=== PATIENT | female | born 1945 | race Caucasian/White ===

== ENCOUNTER 2018-02-28 07:07 | Day surgery (SDC) | payer MEDICARE, OTHER ==
[2018-02-25 13:00] VITALS: BP 151/79
[2018-02-25 13:15] LABS: BASOPHILS # (AUTO) 0.08 x10^3/uL (0-0.1); BASOPHILS % (AUTO) 1 % (0-1); EOSINOPHILS # (AUTO) 0.23 x10^3/uL (0-0.4); EOSINOPHILS % (AUTO) 3 % (1-7); LYMPHOCYTES # (AUTO) 2.93 x10^3/uL (1-3.4); LYMPHOCYTES % (AUTO) 32 % (22-44); MD NO; MEAN CORPUSCULAR HEMOGLOBIN 30.6 pg (27.0-34.8); MEAN CORPUSCULAR HGB CONC 34.1 g/dL (32.4-35.8); MEAN CORPUSCULAR VOLUME 89.7 fL (80-100); MEAN PLATELET VOLUME 8.1 fL (7.4-10.4); MONOCYTES % (AUTO) 9 % (2-9); NEUTROPHILS # (AUTO) 5.21 x10^3/uL (1.8-6.8); NEUTROPHILS % (AUTO) 56 % (42-75); PLATELET COUNT 310 x10^3/uL (130-400); RED BLOOD COUNT 4.48 x10^6/uL (3.82-5.3); RED CELL DISTRIBUTION WIDTH 13.6 % (9.6-15.2)
[2018-02-25 13:25] LABS: INTERNATIONAL NORMALIZED RATIO 1.07 (0.93-1.1); PROTHROMBIN TIME 11.3 Seconds (9.6-11.5)
[2018-02-25 13:27] LABS: ALBUMIN 3.3 g/dL (3.4-5.0); ANION GAP 9 mmol/L (5-15); CALCIUM 9.1 mg/dL (8.5-10.1); CHLORIDE 112 mmol/L (98-107)
[2018-02-25 13:30] LABS: ALANINE AMINOTRANSFERASE 32 U/L (12-78); ALKALINE PHOSPHATASE 63 U/L (45-117); BILIRUBIN,TOTAL 0.9 mg/dL (0.2-1.0); CREATININE 0.76 mg/dL (0.55-1.02)
[~2018-02-28] VITALS: Ht 161.3 cm; Wt 90.0 kg
[~2018-02-28 07:07] MED LIST: ACET-1600 PO; ASPI650T PO; ATOR10TA PO; CHOL2000 PO; ESCI10TA10 PO; FISH1CAP PO; GLYB2.5T2 PO; LOSA100T7 PO; METH750T2 PO; MULT1TAB60 PO; PRED5DRO20 EACHEYE; SITA50TA PO; TRAM50TA2 PO
[2018-02-28] MEDS ORDERED: LACTATED RINGERS 1,000 ML IV SCH (07:42)
[2018-02-28 07:47] VITALS: BP 151/79
[2018-02-28] MEDS ORDERED: LIDOCAINE-MPF 1%, 2ML INFIL ONE (08:00)
[2018-02-28] MEDS ORDERED: MIDAZOLAM 1 MG/ML, 2ML ONE (08:53)
[2018-02-28] MEDS ORDERED: FENTANYL PF 250 MCG/5ML ONE (08:53)
[2018-02-28] MEDS ORDERED: DEXAMETHASONE 4 MG/ML, 1ML ONE ×2 (08:54)
[2018-02-28] MEDS ORDERED: ONDANSETRON 2MG/ML, 2ML ONE (08:54)
[2018-02-28] MEDS ORDERED: PROPOFOL 10 MG/ML, 20ML ONE (08:54)
[2018-02-28] MEDS ORDERED: CEFAZOLIN 1,000 MG ONE ×2 (08:54)
[2018-02-28] MEDS ORDERED: OXYTOCIN 10 UNITS/ML, 1ML ONE (08:55)
[2018-02-28] MEDS ORDERED: KETOROLAC 30 MG/1 ML ONE (09:25)
[2018-02-28] MEDS ORDERED: FENTANYL PF 100 MCG/2ML IV PRN (09:30)
[2018-02-28] MEDS ORDERED: ONDANSETRON 2MG/ML, 2ML IV PRN (09:30)
[2018-02-28] MEDS ORDERED: PROMETHAZINE 25 MG/ML, 1ML IM PRN ×2 (09:30)
[2018-02-28] MEDS ORDERED: LABETALOL 5MG/ML, 20ML IV PRN (09:30)
[2018-02-28] MEDS ORDERED: ONDANSETRON ODT 8 MG PO PRN (09:30)
[2018-02-28] MEDS ORDERED: PROMETHAZINE 25 MG SUPP PR PRN (09:30)
[2018-02-28] MEDS ORDERED: MEPERIDINE/PF 25MG/0.5ML IVPush PRN (09:30)
[2018-02-28] MEDS ORDERED: MORPHINE SULFATE 4 MG/ML, 1ML IVPush PRN (09:30)
[2018-02-28] MEDS ORDERED: SILVER NITRATE STICK TP ONE (09:30)
[2018-02-28] MEDS ORDERED: PROMETHAZINE 25 MG/ML, 1ML IV PRN (09:30)
[2018-02-28] MEDS ORDERED: PROMETHAZINE 12.5 MG SUPP PR PRN (09:30)
[2018-02-28] MEDS ORDERED: OXYcodone 5 MG/5 ML ORAL.SOL UDC PO PRN (09:30)
[2018-02-28] MEDS ORDERED: HYDROmorphone 2 MG/ML, 1ML IVPush PRN (09:30)
[2018-02-28] MEDS ORDERED: hydrALAzine 20 MG/ML, 1ML IV PRN (09:30)
== END 2018-02-28 12:45 | disposition home or self-care (01) ==
LOC: OUT 07:07 → EDSTATUS 18:30
PROVIDERS: ATTEND Specialist
DX: C54.1 Malignant neoplasm of endometrium (principal); N72 Inflammatory disease of cervix uteri; N95.0 Postmenopausal bleeding; I10 Essential (primary) hypertension; E11.9 Type 2 diabetes mellitus without complications; E78.5 Hyperlipidemia, unspecified; E66.01 Morbid (severe) obesity due to excess calories; Z88.8 Allergy status to other drugs, medicaments and biological substances; Z98.49 Cataract extraction status, unspecified eye; Z90.49 Acquired absence of other specified parts of digestive tract; Z98.890 Other specified postprocedural states; Z72.89 Other problems related to lifestyle; Z79.899 Other long term (current) drug therapy
CPT/HCPCS: 36415; 58120; 80053; 82962; 85025; 85610; 85730; 86850; 86900; 88305; 93005; J0690; J1100; J2250; J2405; J2704; J3010; J1885; J2590

== ENCOUNTER → 2018-03-25 | Outpatient (CLI) | payer MEDICARE, OTHER | END | disposition home or self-care (01) | LOC: STAR 08:48 | PROVIDERS: ATTEND Specialist | DX: Z02.9 Encounter for administrative examinations, unspecified (principal) ==

== ENCOUNTER 2018-04-04 05:28 | Day surgery (SDC) | payer MEDICARE, OTHER ==
[~2018-04-04] VITALS: Ht 161.3 cm; Wt 89.5 kg
[2018-04-04] MEDS ORDERED: LACTATED RINGERS 1,000 ML IV SCH (06:05)
[2018-04-04 06:07] VITALS: BP 138/75
[2018-04-04] MEDS ORDERED: FENTANYL PF 250 MCG/5ML ONE ×2 (06:45→09:25)
[2018-04-04] MEDS ORDERED: MIDAZOLAM 1 MG/ML, 2ML ONE (06:45)
[2018-04-04] MEDS ORDERED: BUPIVACAINE/PF-EPI 0.5% 1:200K ONE (06:46)
[2018-04-04] MEDS ORDERED: INDIGO CARMINE 0.8%, 5ML ONE (06:46)
[2018-04-04] MEDS ORDERED: THROMBIN 5,000 UNIT VIAL TP ONE (06:46)
[2018-04-04] MEDS ORDERED: LIDOCAINE-MPF 2% ,5ML ONE (06:48)
[2018-04-04] MEDS ORDERED: PROPOFOL 10 MG/ML, 20ML ONE ×2 (06:48→10:37)
[2018-04-04] MEDS ORDERED: CEFOTETAN PMX 2GM/50ML 50 ML ONE (06:48)
[2018-04-04] MEDS ORDERED: ROCURONIUM 10MG/ML,5ML ONE ×2 (06:48→09:25)
[2018-04-04] MEDS ORDERED: PHENYLEPHRINE 10 MG/ML ONE (06:49)
[2018-04-04] MEDS ORDERED: BUPIVACAINE/PF 0.25% ONE (06:52)
[2018-04-04] MEDS ORDERED: EPINEPHRINE 1 MG/ML, 1ML ONE (06:52)
[2018-04-04] MEDS ORDERED: ACETAMINOPHEN 500 MG TABLET ONE (06:59)
[2018-04-04] MEDS ORDERED: SCOPOLAMINE PATCH, 1.5MG PATCH.TD72 TD ONE (06:59)
[2018-04-04] MEDS ORDERED: GABAPENTIN 300 MG CAPSULE ONE (07:00)
[2018-04-04] MEDS ORDERED: PROPOFOL 50 ML ONE ×2 (07:14→09:27)
[2018-04-04] MEDS ORDERED: DEXAMETHASONE 4 MG/ML, 1ML ONE ×2 (07:16)
[2018-04-04] MEDS ORDERED: ONDANSETRON 2MG/ML, 2ML ONE ×2 (07:16)
[2018-04-04] MEDS ORDERED: HYDROmorphone 2 MG/ML, 1ML IVPush PRN (08:30)
[2018-04-04] MEDS ORDERED: FENTANYL PF 100 MCG/2ML IV PRN (08:30)
[2018-04-04] MEDS ORDERED: PROMETHAZINE 25 MG/ML, 1ML IV PRN (08:30)
[2018-04-04] MEDS ORDERED: MEPERIDINE/PF 25MG/0.5ML IVPush PRN (08:30)
[2018-04-04] MEDS ORDERED: hydrALAzine 20 MG/ML, 1ML IV PRN (08:30)
[2018-04-04] MEDS ORDERED: OXYcodone 5 MG/5 ML ORAL.SOL UDC PO PRN (08:30)
[2018-04-04] MEDS ORDERED: HALOPERIDOL 5 MG/ML IV PRN (08:30)
[2018-04-04] MEDS ORDERED: FENTANYL PF 100 MCG/2ML ONE (11:05)
[2018-04-04] MEDS ORDERED: NEOSTIGMINE 1 MG/ML, 10ML ONE (11:46)
[2018-04-04] MEDS ORDERED: GLYCOPYRROLATE 0.4 MG/2 ML, 2ML ONE (11:46)
[2018-04-04] MEDS ORDERED: INDOCYANINE GREEN 25 MG VIAL ONE (12:06)
[2018-04-04] MEDS ORDERED: SUGAMMADEX 200 MG/2 ML IVPush ONE (12:09)
== END 2018-04-04 17:45 | disposition home or self-care (01) ==
LOC: OUT 05:28
PROVIDERS: ATTEND Specialist
DX: C54.1 Malignant neoplasm of endometrium (principal); R59.1 Generalized enlarged lymph nodes
CPT/HCPCS: 36415; 38571; 58552; 74018; 86304; 86850; 86900; 86923; 88112; 88305; 88307; 88329; 88333; J0171; J1100; J2250; J2370; J2405; J2704; J2710; J3010; J3490; J7120; 82962

== ENCOUNTER → 2018-05-06 | Outpatient (CLI) | payer MEDICARE, OTHER ==
[~2018-05-06] MED LIST changes: +LOSA100T14 PO; -LOSA100T7 PO
== END | disposition home or self-care (01) ==
LOC: ROC 13:14
PROVIDERS: ATTEND Radiology Radiation Oncology
DX: C54.1 Malignant neoplasm of endometrium (principal); E11.9 Type 2 diabetes mellitus without complications; E78.5 Hyperlipidemia, unspecified; I10 Essential (primary) hypertension; E55.9 Vitamin D deficiency, unspecified; Z86.73 Personal history of transient ischemic attack (TIA), and cerebral infarction without residual deficits; Z90.49 Acquired absence of other specified parts of digestive tract; Z90.710 Acquired absence of both cervix and uterus
CPT/HCPCS: G0463

== ENCOUNTER → 2018-07-07 | Outpatient (CLI) | payer MEDICARE, OTHER | END | disposition home or self-care (01) | LOC: EDSTATUS 06-28 14:52 → ROC 07:14 | PROVIDERS: ATTEND Radiology Radiation Oncology | DX: Z08 Encounter for follow-up examination after completed treatment for malignant neoplasm (principal); C54.1 Malignant neoplasm of endometrium | CPT/HCPCS: G0463 ==